=== PATIENT | male | born 1980 | race Caucasian/White ===

== ENCOUNTER → 2022-09-10 | Outpatient (CLI) | payer OTHER | LOC: M EKG 10:09 | PROVIDERS: ATTEND Surgery | DX: Z01.818 Encounter for other preprocedural examination (principal) ==

== ENCOUNTER 2022-09-25 09:47 | Day surgery (SDC) | payer OTHER ==
[~2022-09-25] VITALS: Ht 182.9 cm; Wt 112.5 kg
[~2022-09-25 09:47] MED LIST: CelecoXIB 400 MG CAP PO ONE; ceFAZolin SOD 2 GM in IV 1 EA IV ONE
[2022-09-25] MEDS ORDERED: ROCURONIUM BROMIDE 50MG/5ML VIAL As Ordered ONE ×2 (11:37→14:08)
[2022-09-25] MEDS ORDERED: MIDAZOLAM INJ 2MG/2ML VIAL As Ordered ONE (11:37)
[2022-09-25] MEDS ORDERED: LIDOCAINE 2% 100MG/5ML SDV (FOR ANES.) As Ordered ONE (11:37)
[2022-09-25] MEDS ORDERED: propofoL 200 MG/20 ML VIAL As Ordered ONE ×2 (11:37→13:18)
[2022-09-25] MEDS ORDERED: fentaNYL 250 MCG/5 ML INJECTION As Ordered ONE (11:37)
[2022-09-25] MEDS ORDERED: LIDOCAINE 1% SDV 30ML VIAL As Ordered ONE (12:33)
[2022-09-25] MEDS ORDERED: BUPIVACAINE HCL 0.25% 30ML VIAL As Ordered ONE (12:33)
[2022-09-25] MEDS ORDERED: BUPIVACAINE LIPOSOME/PF 1.3% 20ML VIAL (13.3MG/ML)(EXPAREL) As Ordered ONE (12:34)
[2022-09-25] MEDS ORDERED: BUPIVACAINE HCL 0.25% 10ML VIAL As Ordered ONE (12:35)
[2022-09-25] MEDS ORDERED: HYDR-3713 PO ×2 (12:45→19:18)
[2022-09-25] MEDS ORDERED: ONDANSETRON 4MG 2ML VIAL As Ordered ONE (14:01)
[2022-09-25] MEDS ORDERED: SUGAMMADEX SODIUM 500 MG/5 ML VIAL (BRIDION) As Ordered ONE (14:01)
[2022-09-25] MEDS ORDERED: ACETAMINOPHEN 1000MG 100ML IV BAG As Ordered ONE (14:01)
[2022-09-25] MEDS ORDERED: KETOROLAC 60MG 2ML VIAL As Ordered ONE (14:01)
[2022-09-25] MEDS ORDERED: PHENYLephrine 500MCG 5ML (100MCG/ML) SYRINGE As Ordered ONE (14:03)
[2022-09-25] MEDS ORDERED: ePHEDrine SULFATE 25 MG/5 ML(5MG/ML) SYRINGE As Ordered ONE (14:06)
[2022-09-25] MEDS ORDERED: LR 1,000 ML IV SCH (16:00)
[2022-09-25] MEDS ORDERED: ONDANSETRON 4MG 2ML VIAL IV PRN (16:00)
[2022-09-25] MEDS ORDERED: fentaNYL 100 MCG/2 ML INJECTION IV PRN (16:00)
[2022-09-25] MEDS: HYDROMORPHONE HCL 0.5 MG/ 0.5 ML SYRINGE IV PRN ×2 (16:50→16:55)
[2022-09-25] MEDS ORDERED: NORCO, ANEXSIA 5/325MG TABLET (HYDROcodone/ACETAMINOPHEN) PO PRN ×2 (16:50)
[2022-09-25] MEDS: oxyCODONE 5MG TAB PO PRN ×2 (16:51→17:20)
[2022-09-25 18:20] VITALS: BP 136/88
[2022-09-25] MEDS ORDERED: KETOROLAC 30 MG/ML 1ML VIAL IV SCH (22:00)
== END 2022-09-25 18:34 | disposition home or self-care (01) ==
LOC: M SDC 09:47 → EDUNIT# 11:30 → M SDC 18:34
PROVIDERS: ATTEND Surgery
DX: K42.9 Umbilical hernia without obstruction or gangrene (principal); K21.9 Gastro-esophageal reflux disease without esophagitis; E78.5 Hyperlipidemia, unspecified; Z87.891 Personal history of nicotine dependence; F41.9 Anxiety disorder, unspecified; Z88.8 Allergy status to other drugs, medicaments and biological substances
CPT/HCPCS: 49591; C1781; C9290; J0131; J0690; J1100; J1170; J1885; J2250; J2370; J2405; J3010; S0020